=== PATIENT | female | born 1965 | race Hispanic/Latino ===

== ENCOUNTER 2020-06-02 09:17 | Emergency (ER) | payer BC, OTHER ==
[2020-06-02 09:50] VITALS: O2SAT 97
[2020-06-02] MEDS ORDERED: diazePAM INJ 10 MG/2 ML SYG IM ONE (10:21)
[2020-06-02] MEDS ORDERED: traMADol HCL 50 MG TAB PO ONE (10:22)
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
[2020-06-02 11:07] VITALS: BP 136/82
[2020-06-02 11:08] VITALS: TEMP 98.1
== END 2020-06-02 10:58 | disposition home or self-care (01) ==
LOC: ER 09:17
DX: S13.4XXA Sprain of ligaments of cervical spine, initial encounter (principal); M54.5 Low back pain; S00.93XA Contusion of unspecified part of head, initial encounter; J45.909 Unspecified asthma, uncomplicated; I10 Essential (primary) hypertension; E11.9 Type 2 diabetes mellitus without complications; V49.49XA Driver injured in collision with other motor vehicles in traffic accident, initial encounter; Y92.410 Unspecified street and highway as the place of occurrence of the external cause; Z86.73 Personal history of transient ischemic attack (TIA), and cerebral infarction without residual deficits; Z79.84 Long term (current) use of oral hypoglycemic drugs; Z79.899 Other long term (current) drug therapy

== ENCOUNTER → 2020-06-18 | Outpatient (CLI) | payer BC, OTHER ==
--- NOTE | 2020-06-18 16:15 | MRI ---
EXAM DESCRIPTION: Lumbar Spine w/wo Contrast CLINICAL HISTORY: 54 years Female, low back pain COMPARISON: None. TECHNIQUE: Multisequence, multiplanar images of the lumbar spine without and with intravenous contrast. FINDINGS: For the purpose of this report, the designated L5-S1 disc space will be referred to as axial T2 image 3, series 501. Vertebrae: No acute fracture. No acute compression deformity. Mild lumbar lordosis. 3 mm anterolisthesis of L4 relative L5 likely contributed by facet hypertrophy. Mild periarticular edema about the L4-5 facets. Slight levocurvature centered at L3-L4. No abnormal enhancement of the osseous structures. Spinal cord: Termination of the conus medullaris at T12-L1. Normal nerve roots of the cauda equina. No abnormal enhancement. Discs, facets, spinal canal, and neural foramina: Disc desiccation L4-5 and L5-S1. Mild L4-5 disc space during. No abnormal enhancement. L1-L2: No significant finding. L2-3: Mild facet arthropathy. Spinal canal and neuroforamina patent. L3-4: No disc bulge. Moderate facet arthropathy. Spinal canal and neuroforamina patent. L4-5: Minimal unroofing the posterior disc space. Small disc bulge. Severe facet arthropathy and severe right and moderate left ligament flavum hypertrophy. Moderate right lateral recess stenosis which probably affects the transiting right L5 nerve root. Moderate spinal canal stenosis. Moderate right and mild left neural foraminal stenosis. L5-S1: Small disc bulge. Moderate facet arthropathy. Spinal canal patent. Mild left but no right neural foraminal stenosis. Paraspinous soft tissues: Moderate severe periarticular soft tissue edema about the L4-5 facets with enhancement. IMPRESSION: 1. No acute fracture. 2. Lumbar spondylosis with grade 1 anterolisthesis of L4-5 contributed by facet hypertrophy. 3. L4-5 right lateral recess stenosis could effect the transiting right L5 nerve root. 4. Periarticular edema about the L4-5 facets may be reactive or represent active inflammation. Electronically signed by: Watson Aviles MD 06/18/2020 4:14 PM [facility]
== END ==
LOC: MRI 11:01
PROVIDERS: ATTEND Family Medicine
DX: Z01.812 Encounter for preprocedural laboratory examination (principal); M47.896 Other spondylosis, lumbar region; M43.16 Spondylolisthesis, lumbar region; M48.062 Spinal stenosis, lumbar region with neurogenic claudication; R60.0 Localized edema